=== PATIENT | male | born 1955 | race Caucasian/White ===

== ENCOUNTER 2024-07-06 10:26 | Day surgery (SDC) | payer MEDICARE, OTHER ==
[2024-07-06] MEDS: Lidocaine 1% PF 2 ML SDV INJECT SCH (10:19)
[2024-07-06] MEDS: Phenylephrine 2.5% Ophth Soln 2 ML Bot EYELF SCH (10:19)
[2024-07-06] MEDS: Tetracaine HCl/PF 0.5% 4 ML Bottle EYEBOTH SCH (10:19)
[2024-07-06] MEDS: Pilocarpine 4% Ophth Soln 15 ML Bot EYELF SCH (10:20)
[2024-07-06] MEDS: Polymyxin B/Trimethoprim 10 ML Bottle EYELF SCH (10:20)
[2024-07-06] MEDS: Cefuroxime 10 MG/ML SYRINGE EYELF SCH (10:20)
[2024-07-06] MEDS: Brimonidine 0.2% Ophth Soln 5 ML Bottle EYELF SCH (10:20)
[2024-07-06] MEDS: Tropicamide 1% Ophth Soln 3 ML Bottle EYELF SCH (11:00)
== END 2024-07-06 12:30 | disposition home or self-care (01) ==
LOC: JD.SDS 10:26
PROVIDERS: ATTEND Ophthalmology
DX: H25.813 Combined forms of age-related cataract, bilateral (principal); H21.81 Floppy iris syndrome; H21.42 Pupillary membranes, left eye; J45.909 Unspecified asthma, uncomplicated
CPT/HCPCS: 66982; A9270; J0697; J3490

== ENCOUNTER 2024-08-03 07:49 | Day surgery (SDC) | payer MEDICARE, OTHER ==
[2024-08-03] MEDS: Tetracaine HCl/PF 0.5% 4 ML Bottle EYEBOTH SCH (07:20)
[2024-08-03] MEDS: Lidocaine 1% PF 2 ML SDV INJECT SCH (07:20)
[2024-08-03] MEDS: Phenylephrine 2.5% Ophth Soln 2 ML Bot EYERT SCH (07:20)
[2024-08-03] MEDS: Cefuroxime 10 MG/ML SYRINGE EYERT SCH (07:20)
[2024-08-03] MEDS: Pilocarpine 4% Ophth Soln 15 ML Bot EYERT SCH (07:20)
[2024-08-03] MEDS: Polymyxin B/Trimethoprim 10 ML Bottle EYERT SCH (07:21)
[2024-08-03] MEDS: Brimonidine 0.2% Ophth Soln 5 ML Bottle EYERT SCH (07:21)
[2024-08-03] MEDS: Tropicamide 1% Ophth Soln 3 ML Bottle EYERT SCH (08:15)
== END 2024-08-03 10:46 ==
LOC: JD.SDS 07:49
PROVIDERS: ATTEND Ophthalmology
DX: H25.811 Combined forms of age-related cataract, right eye (principal); H21.81 Floppy iris syndrome; H21.41 Pupillary membranes, right eye; H52.31 Anisometropia; Z96.1 Presence of intraocular lens; J45.909 Unspecified asthma, uncomplicated; E78.2 Mixed hyperlipidemia; Z79.899 Other long term (current) drug therapy; Z87.891 Personal history of nicotine dependence
CPT/HCPCS: A9270-GY; J0697; J3490